=== PATIENT | male | born 1955 | race Hispanic/Latino ===

== ENCOUNTER 2021-12-19 08:10 | Outpatient (CLI) | payer MEDICARE | END 2021-12-19 08:11 | disposition home or self-care (01) | LOC: TBSIIMAG 08:10 | PROVIDERS: ATTEND Neurological Surgery | DX: M47.26 Other spondylosis with radiculopathy, lumbar region (principal); Z98.890 Other specified postprocedural states | CPT/HCPCS: 72100 ==

== ENCOUNTER 2022-02-04 10:04 | Outpatient (CLI) | payer MEDICARE | END 2022-02-04 10:05 | disposition home or self-care (01) | LOC: TBSIIMAG 10:04 | PROVIDERS: ATTEND Neurological Surgery | DX: M47.26 Other spondylosis with radiculopathy, lumbar region (principal); Z98.890 Other specified postprocedural states | CPT/HCPCS: 72100 ==